=== PATIENT | female | born 1935 | race Caucasian/White ===

== ENCOUNTER 2021-12-18 13:29 | Outpatient (CLI) | payer MEDICARE, BC | END 2021-12-18 13:30 | disposition home or self-care (01) | LOC: CSHMAMMO 13:29 | PROVIDERS: ATTEND Family Medicine Sports Medicine | DX: Z12.31 Encounter for screening mammogram for malignant neoplasm of breast (principal) | CPT/HCPCS: 77063; 77067 ==

== ENCOUNTER 2021-12-24 12:07 | Outpatient (CLI) | payer MEDICARE, BC ==
[2021-12-24 13:36] LABS: Mean Corpuscular HGB CONC 33.9 g/dL (32.0-36.0); Mean Corpuscular Hemoglobin 30.9 pg (27.0-33.0); Mean Corpuscular Volume 91.2 fl (81.6-98.3); Mean Platelet Volume 11.4 fl (7.4-10.4); Platelet Count 216 10x3/uL (150-450); RBC Distribution Width 15.2 % (11.5-14.5); Red Blood Cell (RBC) Count 3.88 10x6/uL (3.90-5.03); White Blood Cell (WBC) Count 7.7 10x3/uL (3.5-10.5)
[2021-12-24 14:06] LABS: Anion Gap 14 mmol/L (10-20); BUN (Urea Nitrogen) 23 mg/dL (9.8-20.1); Calc. Creatinine Clearance 0 mL/min (70-130); Calcium 9.4 mg/dL (7.8-10.44); Carbon Dioxide 28 mmol/L (23-31); Chloride 104 mmol/L (98-107); Estimated GFR 61; Glucose 118 mg/dL (83-110); Potassium 4.6 mmol/L (3.5-5.1); Sodium 141 mmol/L (136-145)
== END 2021-12-24 12:08 | disposition home or self-care (01) ==
LOC: CSHLAB 12:07
PROVIDERS: ATTEND Podiatrist Foot & Ankle Surgery
DX: Z01.812 Encounter for preprocedural laboratory examination (principal); Z20.822 Contact with and (suspected) exposure to COVID-19; M20.11 Hallux valgus (acquired), right foot; M20.41 Other hammer toe(s) (acquired), right foot
CPT/HCPCS: 80048; 85027; 87811

== ENCOUNTER 2021-12-29 07:40 | Day surgery (SDC) | payer MEDICARE, BC ==
[2021-12-25 13:39] VITALS: BMI 30.6
[2021-12-29] MEDS ORDERED: Bupivacaine PF 0.5% 30 ML VIAL ONE (08:45)
[2021-12-29] MEDS ORDERED: Neomycin-Polymyxin 1 ML AMP ONE (08:46)
[2021-12-29] MEDS ORDERED: CEFAZOLIN 1 GM VIAL ONE (09:54)
[2021-12-29] MEDS ORDERED: Fentanyl 100 MCG/2 ML VIAL ONE (09:57)
[2021-12-29] MEDS ORDERED: PROPOFOL 20 ML ONE (09:57)
[2021-12-29] MEDS ORDERED: Ondansetron PF 4 MG/2 ML Vial ONE (10:04)
[2021-12-29] MEDS ORDERED: Dexamethasone 20 MG/5 ML VIAL ONE (10:04)
[2021-12-29] MEDS ORDERED: Lidocaine 1% PF 5 ML VIAL ONE (10:04)
[2021-12-29] MEDS ORDERED: PHENYLEPHRINE-NS 100 MCG/ML 10 ML SYRINGE ONE (10:40)
[2021-12-29] MEDS ORDERED: ePHEDrine Sulfate 50 MG/10 ML VIAL ONE (11:13)
== END 2021-12-29 14:10 | disposition home or self-care (01) ==
LOC: CSHSDC 07:40
PROVIDERS: ATTEND Podiatrist Foot & Ankle Surgery
PROC: 0SGM04Z Fusion of Right Metatarsal-Phalangeal Joint with Internal Fixation Device, Open Approach (ICD-10-PCS; principal; 2021-12-29)
PROC: 0SGP04Z Fusion of Right Toe Phalangeal Joint with Internal Fixation Device, Open Approach (ICD-10-PCS; 2021-12-29)
PROC: 0QSN04Z Reposition Right Metatarsal with Internal Fixation Device, Open Approach (ICD-10-PCS; 2021-12-29)
PROC: 0QSN04Z Reposition Right Metatarsal with Internal Fixation Device, Open Approach (ICD-10-PCS; 2021-12-29)
DX: M20.11 Hallux valgus (acquired), right foot (principal); M20.41 Other hammer toe(s) (acquired), right foot; M77.41 Metatarsalgia, right foot; I10 Essential (primary) hypertension; E78.2 Mixed hyperlipidemia; I25.10 Atherosclerotic heart disease of native coronary artery without angina pectoris; E03.9 Hypothyroidism, unspecified; I49.3 Ventricular premature depolarization; I89.0 Lymphedema, not elsewhere classified; M19.90 Unspecified osteoarthritis, unspecified site; Z79.82 Long term (current) use of aspirin; Z79.899 Other long term (current) drug therapy; Z88.5 Allergy status to narcotic agent; Z88.8 Allergy status to other drugs, medicaments and biological substances; Z87.891 Personal history of nicotine dependence; Z90.710 Acquired absence of both cervix and uterus; Z98.890 Other specified postprocedural states
CPT/HCPCS: 28285 ×3; 28308 ×2; 73620; C1713 ×6; J0690; J1100; J2405; J2704; J3010; S0020